=== PATIENT | male | born 1990 | race Two or more races ===

== ENCOUNTER 2019-01-02 16:36 | Emergency (ER) | payer BC, OTHER ==
--- NOTE | 2019-01-02 16:48 | EDM.PDOC ---
ED HPI GENERAL MEDICAL PROBLEM - General Chief Complaint: General Stated Complaint: PAIN Time Seen by Provider: 01/02/19 16:38 Source of Information: Reports: Patient History Limitations: Reports: No Limitations - History of Present Illness INITIAL COMMENTS - FREE TEXT/NARRATIVE: HISTORY AND PHYSICAL: History of present illness: Patient is a 28-year-old male who presents to the emergency room with complaints of hemorrhoid pain. He states on Thursday he had noticed a hemorrhoid and had told his boss about it. He states his employer does not want him to return to work until he is evaluated. He states that the area is painful when sitting down for long periods of time. He denies any rectal injury. Patient denies any fever, chills, headache, change in vision, syncope or near syncope. Denies any chest pain, back pain, shortness of breath or cough. Denies any abdominal pain, nausea, vomiting, diarrhea, constipation or dysuria. Has not noted any blood in urine or stool. Patient has been eating and drinking appropriately. Review of systems: As per history of present illness and below otherwise all systems reviewed and negative. Past medical history: As per history of present illness and as reviewed below otherwise noncontributory. Surgical history: As per history of present illness and as reviewed below otherwise noncontributory. Social history: See social history for further information Family history: As per history of present illness and as reviewed below otherwise noncontributory. Physical exam: General: HEENT: Atraumatic, normocephalic, pupils equal and reactive bilaterally, negative for conjunctival pallor or scleral icterus, mucous membranes moist, TMs normal bilaterally, throat clear, neck supple, nontender, trachea midline. No drooling or trismus noted. No meningeal signs. No hot potato voice noted. Lungs: Clear to auscultation, breath sounds equal bilaterally, chest nontender. Heart: S1S2, regular rate and rhythm without overt murmur Abdomen: Soft, nondistended, nontender. Negative for masses or hepatosplenomegaly. Negative for costovertebral tenderness. Pelvis: Stable nontender. Genitourinary: Deferred. Rectal: This was done with consent and a travelift operator at the bedside. Patient does have a vera-sized hemorrhoid, nonthrombosed, noted to the rectum at the 6 o' clock position. No current bleeding noted. Good rectal tone. Skin: Intact, warm, dry. No lesions or rashes noted. Extremities: Atraumatic, moves all extremities per self without difficulty or deficits, negative for cords or calf pain. Neurovascular unremarkable. Neuro: Awake, alert, oriented. Cranial nerves II through XII unremarkable. Cerebellum unremarkable. Motor and sensory unremarkable throughout. Exam nonfocal. Diagnostics: None Therapeutics: Proctofoam Prescription: Proctofoam Impression: Hemorrhoid Plan: 1. Make sure you are drinking plenty of fluids and adding fiber to your diet to prevent constipation. Any straining will cause further pain and discomfort. He can get a doughnut seat (cut -out cushion) to use for comfort when sitting for long periods of time. 2. You may return to work. Please use the Proctofoam as needed. This can be applied 3-4 daily (after bowel movements.) 3. Tylenol and/or ibuprofen as needed for pain management. 4. Follow-up with a general surgeon as this may need to be removed. He can call Thursday to set up this appointment. 5. Return to the ED as needed and as discussed. Definitive disposition and diagnosis as appropriate pending reevaluation and review of above. Rectum Pain Score (Numeric/FACES): 3 - Related Data Allergies Allergy/AdvReac Type Severity Reaction Status Date / Time No Known Allergies Allergy Verified 01/02/19 16:52 Home Meds: Home Meds . [No Known Home Meds] 01/02/19 [History] ED ROS GENERAL - Review of Systems Review Of Systems: ROS reveals no pertinent complaints other than HPI. ED EXAM, GENERAL - Physical Exam Exam: See Below (See dictation) Course - Vital Signs Last Recorded V/S: Last Vital Signs Temp 96.4 F 01/02/19 16:51 Pulse 57 L 01/02/19 16:51 Resp 18 01/02/19 16:51 BP 153/95 H 01/02/19 16:51 Pulse Ox 95 01/02/19 16:51 - Orders/Labs/Meds Meds: Medications Discontinued Medications Generic Name Dose Route Start Last Admin Trade Name Freq PRN Reason Stop Dose Admin Hydrocortisone 1 gm 01/02/19 17:04 Proctozone-Hc 2.5% Crm TOP 01/02/19 17:05 NOW STA Departure - Departure Time of Disposition: 17:17 Disposition: Home, Self-Care 01 Clinical Impression: Hemorrhoid Qualifiers: Hemorrhoid type: unspecified Qualified Code(s): K64.9 - Unspecified hemorrhoids - Discharge Information Instructions: Hemorrhoids, [id number] Referrals: PCP,None [Primary Care Provider] - Forms: ED Department Discharge Additional Instructions: The following information is given to patients seen in the emergency department who are being discharged to home. This information is to outline your options for follow-up care. We provide all patients seen in our emergency department with a follow-up referral. The need for follow-up, as well as the timing and circumstances, are variable depending upon the specifics of your emergency department visit. If you don't have a primary care physician on staff, we will provide you with a referral. We always advise you to contact your personal physician following an emergency department visit to inform them of the circumstance of the visit and for follow-up with them and/or the need for any referrals to a consulting specialist. The emergency department will also refer you to a specialist when appropriate. This referral assures that you have the opportunity for follow-up care with a specialist. All of these measure are taken in an effort to provide you with optimal care, which includes your follow-up. Under all circumstances we always encourage you to contact your private physician who remains a resource for coordinating your care. When calling for follow-up care, please make the office aware that this follow-up is from your recent emergency room visit. If for any reason you are refused follow-up, please contact the [facility] Emergency Department at and asked to speak to the emergency department charge nurse. [facility] [address] [place] [id number] [id number] 1. Make sure you are drinking plenty of fluids and adding fiber to your diet to prevent constipation. Any straining will cause further pain and discomfort. He can get a doughnut seat (cut -out cushion) to use for comfort when sitting for long periods of time. 2. You may return to work. Please use the Proctofoam as needed. This can be applied 3-4 daily (after bowel movements.) 3. Tylenol and/or ibuprofen as needed for pain management. 4. Follow-up with a general surgeon as this may need to be removed. He can call Thursday to set up this appointment. 5. Return to the ED as needed and as discussed.
[2019-01-02] MEDS ORDERED: Hydrocortisone 2.5% Crm 30 GM Tube TOP STA (17:04)
== END 2019-01-02 17:44 | disposition home or self-care (01) ==
LOC: MW.ED 16:36
DX: K64.9 Unspecified hemorrhoids (principal)
CPT/HCPCS: 99282